=== PATIENT | female | born 1985 | race Caucasian/White ===

== ENCOUNTER 2018-02-25 09:09 | Emergency (ER) | payer OTHER ==
[~2018-02-25] VITALS: Ht 170.2 cm; Wt 72.6 kg
== END 2018-02-25 13:41 | disposition home or self-care (01) ==
LOC: ER 09:09
DX: N76.0 Acute vaginitis (principal); B37.3 Candidiasis of vulva and vagina

== ENCOUNTER 2019-08-24 17:10 | Emergency (ER) | payer OTHER ==
[~2019-08-24] VITALS: Ht 170.2 cm; Wt 68.0 kg
[2019-08-24] MEDS ORDERED: YAZ 28 TABLET1 EACH PO (18:00)
[2019-08-24] MEDS ORDERED: ADDERALL 10 MG10 MG PO (18:00)
[2019-08-24] MEDS ORDERED: FLUCONAZOLE150 MG PO (19:18)
[2019-08-24] MEDS ORDERED: INTESTINEX680 M1 PO (19:18)
[2019-08-24] MEDS ORDERED: METRONIDAZOLE500 MG PO (19:18)
[2019-08-24] MEDS ORDERED: TERCONAZOLE80 MG VAG (19:18)
== END 2019-08-24 19:57 | disposition home or self-care (01) ==
LOC: ER 17:10
DX: N76.0 Acute vaginitis (principal); B37.3 Candidiasis of vulva and vagina; N39.0 Urinary tract infection, site not specified; B96.29 Other Escherichia coli [E. coli] as the cause of diseases classified elsewhere; B96.89 Other specified bacterial agents as the cause of diseases classified elsewhere